=== PATIENT | female | born 2000 | race Caucasian/White ===

== ENCOUNTER 2023-10-12 13:16 | Outpatient (REF) | payer OTHER, SELFPAY ==
[2023-10-12 16:00] LABS: Hematocrit 39.9 % (37.0-47.0); Hemoglobin 13.2 g/dl (12.0-16.0); Mean Corpuscular HGB Conc 33.1 g/dl (31.0-35.0); Mean Corpuscular Hemoglobin 29.3 pg (27.0-33.0); Mean Corpuscular Volume 88.5 fL (80.0-98.0); Mean Platelet Volume 10.6 fL (9.4-12.3); Platelet Count 340 X10*3/uL (160-400); Red Blood Count 4.51 X10*6/uL (4.20-5.50); Red Cell Distribution Width 13.8 % (11.0-16.0); White Blood Count 6.9 X10*3/uL (4.8-10.8)
[2023-10-12 16:20] LABS: Estimated Average Glucose 100 mg/dL; Hemoglobin A1c % 5.1 % (<6.0)
[2023-10-12 16:23] LABS: Alanine Aminotransferase 32 U/L (0-31); Albumin Level 4.5 g/dL (3.5-5.0); Alkaline Phosphatase 82 U/L (39-117); Anion Gap 13 (12-20); Aspartate Amino Transferase 29 U/L (5-31); Bilirubin Total 0.3 mg/dL (0.0-1.0); Blood Urea Nitrogen 18 mg/dL (9-16); Calcium 9.9 mg/dL (8.4-10.2); Carbon Dioxide 25 mmol/L (22-29); Chloride 109 mmol/L (96-108); Estimated Glomerular Filt Rate > 60; Glucose Random 76 mg/dL (60-115); Potassium 4.5 mmol/L (3.3-5.1); Sodium 142 mmol/L (135-145); Total Protein 7.9 g/dL (6.5-8.0)
[2023-10-12 16:29] LABS: TSH reflex Free T4 0.73 uIU/mL (0.32-4.0)
[2023-10-12 17:42] LABS: CT PCR NOT DETECTED (Not Detect.); NG PCR NOT DETECTED (Not Detect.)
[2023-10-13 08:46] LABS: HBc Num1 0.11 S/CO (0.00-0.79); HBsAGNum1 0.44 S/CO (0.00-0.99); HIV AB/AG Nonreactive (Nonreactive); HIV Num 1 0.06 S/CO (0.00-0.99); Hepatitis B Core Antibody Nonreactive (Nonreactive); Hepatitis B Surface Antigen Negative (Negative); ~HepC Num1 0.09 S/CO (0.00-0.79); ~Hepatitis B Surface Antibody REACTIVE (Nonreactive); ~Hepatitis C Antibody Nonreactive (Nonreactive)
[2023-10-13 08:57] LABS: Syphilis Screen Nonreactive (Nonreactive)
[2023-10-15 02:29] LABS: TS Negative Control Passed; TS Panel A 1; TS Panel B 0; TS Positive Control Passed; TSpotTB Negative (Negative)
== END 2023-10-12 13:17 | disposition home or self-care (01) ==
LOC: HO.HHCL 13:16
PROVIDERS: Visit Provider Student in an Organized Health Care Education/Training Program
DX: Z00.00 Encounter for general adult medical examination without abnormal findings (principal); Z13.1 Encounter for screening for diabetes mellitus; Z13.29 Encounter for screening for other suspected endocrine disorder
CPT/HCPCS: 36415; 80053; 83036; 84443; 85027; 86481; 86704; 86706; 86780; 86803; 87340; 87389; 87491; 87591

== ENCOUNTER 2024-09-14 11:30 | Outpatient (REF) | payer OTHER, SELFPAY ==
[2024-09-14 13:30] LABS: Hematocrit 39.1 % (37.0-47.0); Hemoglobin 12.9 g/dl (12.0-16.0); Mean Corpuscular Hemoglobin 28.7 pg (27.0-33.0); Mean Corpuscular Volume 87.1 fL (80.0-98.0); Mean Platelet Volume 10.9 fL (9.4-12.3); Platelet Count 285 X10*3/uL (160-400); Red Blood Count 4.49 X10*6/uL (4.20-5.50); Red Cell Distribution Width 13.3 % (11.0-16.0); White Blood Count 5.4 X10*3/uL (4.8-10.8)
--- OUTSIDE RECORDS SUMMARY | 2024-09-14 13:42 | XMS_ITS | Encounter Summary ---
Author Organization [employer] Address [address] [facility] [address] [place] [address] Care Team Providers Care Dip Unit Operator Name Role Phone Savanna Hill MD Primary Care Pro vider Encounter Details Date Type Department Care Team (Latest Contact Info) Description 09/14/2024 Travel Social History Tobacco Use Types Packs/Day Years Used Date Smoking Tobacco: Never Smokeless Tobacco: Never Alcohol Use Standard Drinks/Week Comments Yes 0 (1 standard drink = 0.6 oz pur e alcohol) social Alcohol Answer Date Recorded Frequency of Alcohol Consumption Not on file 10/20/2023 Average Number of Drinks Not on file 024 Frequency of Binge Drinking Not on file 09/22 Score 0 10/20/2023 Depression Answer Date Recorded Patient Health Questionnaire-9 Score 0 09/14/2024 Patient Health Questionnaire-9 Score 0 09/14/2024 Last PHQ-9: Questionnaire Data Not on file 0 09/14/2024 Housing Stability Answer Date Recorded What is your housing situation today? I have [place] 09/14/[address] you li ve. Do you have problems with any of the following? None of the above 09/14/2024 Food Insecurity Answer Date Recorded Within the past 12 months, y ou worried that your food would run out before you got money to buy more: Never True 09/14/2024 Within the past 12 months,th e food you bought just didn't last and you didn't have enough money to get more: Never True Transportation Answer Date Recorded In the past 12 months, has l ack of transportation kept you from medical appts, meetings, work or from getting things needed for daily living? No 09/14/2024 Utilities Answer Date Recorded In the past 12 months, has t he electric, gas, oil or water company threatened to shut off services in your home? No 09/14/2024 Depression Answer Date Recorded Patient Health Questionnaire-2 Score 0 09/14/2024 Internet Access Answer Date Recorded Internet Access Q1 Yes 09/14/2024 Internet Access Q2 Not on file 09/14/2024 Comments Unknown Sex and Gender Information Value Date Recorded Sex Assigned at Female 01/20/2022 10:37 AM EDT Legal Sex Female 10:37 AM EDT Gender Identity Female 01/20/2022 10:37 AM EDT Sexual Orientation Straight 01/20/2022 10 :37 AM EDT documented as of this encounter Functional Status * Over the past 2 weeks, how often have you been bothered by any of the following problems? Question Answer Date of Assessment Author Patient Health Questionnaire -2 Score 0 09/14/2024 11:07 AM EDT Zahraa Proctor MA * Little interest or pleasure in doing things Answer Date of Assessment Author Not at all 09/14/2024 11:07 AM Zahraa Palacios MA * Feeling down, depressed, or hopeless Answer Date of Assessment Author Not at all 09/14/2024 11:07 AM Zahraa Palacios MA * Trouble falling or staying asleep, or sleeping too much Answer Date of Assessment Author Not at all 09/14/2024 11:07 AM Zahraa Palacios MA * Feeling tired or having little energy Answer Date of Assessment Author Not at all 09/14/2024 11:07 AM Zahraa Palacios MA * Poor appetite or overeating Answer Date of Assessment Author Not at all 09/14/2024 11:07 AM Zahraa Palacios MA * Feeling bad about yourself - or that you are a failure or have let yourself or your family down Answer Date of Assessment Author Not at all 09/14/2024 11:07 AM Zahraa Palacios MA * Trouble concentrating on things, such as reading the newspaper or watching television Answer Date of Assessment Author Not at all 09/14/2024 11:07 AM ALLEGRAT Zahraa Proctor MA * Moving or speaking so slowly that other people could have noticed? Or the opposite - being so fidgety or restless that you have been moving around a lot more than usual. Answer Date of Assessment Author Not at all 09/14/2024 11:07 AM EDT Zahraa Proctor MA * Thoughts that you would be better off or hurting yourself in some way Answer Date of Assessment Author Not at all 09/14/2024 11:07 AM EDT Zahraa Proctor MA * Patient Health Questionnaire-9 Score Answer Date of Assessment Author 0 09/14/2024 11:07 AM Zahraa Palacios MA * Over the last 2 weeks, how often have you been bothered by any of the following problems? Question Answer Date of Assessment Author Feeling nervous, anxious, or on edge 0 09/14/2024 11:07 AM EDT Zahraa Proctor MA Not being able to stop or co ntrol worrying 0 09/14/2024 11:07 AM ALLEGRAT Zahraa Proctor MA Worrying too much about diff erent things 0 09/14/2024 11:07 AM ALLEGRAT Zahraa Proctor MA Trouble relaxing 0 09/14/2024 11:07 AM ALLEGRAT Zahraa Proctor MA Being so restless that it is hard to sit still 0 09/14/2024 11:07 AM Zahraa Palacios MA Becoming easily annoyed or irritable 0 09/14/2024 11:07 AM ALLEGRAT Zahraa Proctor MA Feeling afraid as if somethi ng awful might happen 0 09/14/2024 11:07 AM Zahraa Palacios MA NATE-7 Total Score 0 09/14/2024 11:07 AM ALLEGRAT Zahraa Proctor MA documented as of this encounter Plan of Treatment Upcoming Encounters Date Type Department Care Team (Late st Contact Info) Description 09/15/2024 9:45 AM EDT Procedure Visit [facility] [address] [place] [address] Rhianna Jean CNM [address] [place] [address] documented as of this encounter Visit Diagnoses Not on filedocumented in this encounter Additional Health Concerns Assessment Noted Time PHQ-9 Depression Total Score: 0 09/15/19 25 11:07 AM EDT documented as of this encounter Care Teams Dip Unit Operator Relationship Specialty Start Date End Date Savanna Hill MD [address] [place], [place] [id number] PCP - General Internal Medicine 09/08/23 documented as of this encounter
[2024-09-14 13:45] LABS: Estimated Average Glucose 105 mg/dL; Hemoglobin A1C 114.0975 umol/L; Hemoglobin A1c % 5.3 % (<6.0)
[2024-09-14 14:01] LABS: Alanine Aminotransferase 17 U/L (0-31); Albumin Level 4.3 g/dL (3.5-5.0); Alkaline Phosphatase 53 U/L (39-117); Anion Gap 11 (12-20); Aspartate Amino Transferase 23 U/L (5-31); Bilirubin Total 0.3 mg/dL (0.0-1.0); Blood Urea Nitrogen 13 mg/dL (9-16); Calcium 9.5 mg/dL (8.4-10.2); Carbon Dioxide 25 mmol/L (22-29); Chloride 109 mmol/L (96-108); Estimated Glomerular Filt Rate > 60; Glucose Random 84 mg/dL (60-115); Sodium 141 mmol/L (135-145); TSH reflex Free T4 1.24 uIU/mL (0.32-4.0); Total Protein 7.1 g/dL (6.5-8.0)
[2024-09-15 08:06] LABS: HBsAGNum1 0.39 S/CO (0.00-0.99); HIV AB/AG Nonreactive (Nonreactive); HIV Num 1 0.06 S/CO (0.00-0.99); Hepatitis B Surface Antigen Negative (Negative); ~HepC Num1 0.12 S/CO (0.00-0.79); ~Hepatitis C Antibody Nonreactive (Nonreactive)
[2024-09-15 09:28] LABS: Syphilis Screen Nonreactive (Nonreactive)
== END 2024-09-14 11:31 | disposition home or self-care (01) ==
LOC: HO.HHCL 11:30
PROVIDERS: PCP Student in an Organized Health Care Education/Training Program; Visit Provider Student in an Organized Health Care Education/Training Program
DX: Z00.00 Encounter for general adult medical examination without abnormal findings (principal); R74.01 Elevation of levels of liver transaminase levels
CPT/HCPCS: 36415; 80053; 83036; 84443; 85027; 86780; 86803; 87340; 87389

== ENCOUNTER 2024-09-15 16:41 | Outpatient (REF) | payer OTHER, SELFPAY ==
--- OUTSIDE RECORDS SUMMARY | 2024-09-15 19:50 | XMS_ITS | Encounter Summary ---
Author Organization [employer] Address [address] [facility] [address] [place] [address] Care Team Providers Care Technology Consultant Name Role Phone Savanna Hill MD Primary Care Pro vider Encounter Details Date Type Department Care Team (Latest Contact Info) Description 09/15/2024 Travel Social History Tobacco Use Types Packs/Day Years Used Date Smoking Tobacco: Never Smokeless Tobacco: Never Alcohol Use Standard Drinks/Week Comments Not Currently 0 (1 standard drink = 0.6 oz [...] Access Q2 Not on file 09/14/2024 Comments No Sex and Gender Information Value Date Recorded Sex Assigned at Female 01/20/2022 10:37 AM EDT Legal Sex Female 10:37 AM EDT Gender Identity Female 01/20/2022 10:37 AM EDT Sexual Orientation Straight 01/20/2022 10 :37 AM EDT documented as of this encounter Plan of Treatment Not on file documented as of this encounter Visit Diagnoses Not on filedocumented in this encounter Additional Health Concerns Assessment Noted Time PHQ-9 Depression Total Score: 0 09/15/19 25 11:07 AM EDT documented as of this encounter Care Teams Technology Consultant Relationship Specialty Start Date End Date Savnana Hill MD [address] [place] [id number] PCP - General Internal Medicine 09/08/23 documented as of this encounter
[2024-09-17 10:54] LABS: C. trachomatis RNA TMA NOT DETECTED (NOT DETECTED); N. gonorrhoeae RNA TMA NOT DETECTED (NOT DETECTED)
[2024-09-17 13:37] LABS: Trichomonas (NAAT) NOT DETECTED (NOT DETECTED)
== END 2024-09-15 16:42 | disposition home or self-care (01) ==
LOC: HO.HHCLNP 16:41
PROVIDERS: Visit Provider Advanced Practice Midwife
DX: Z12.4 Encounter for screening for malignant neoplasm of cervix (principal); Z11.3 Encounter for screening for infections with a predominantly sexual mode of transmission
CPT/HCPCS: 87491; 87591; 87661; 88175